=== PATIENT | male | born 1990 | race Two or more races ===

== ENCOUNTER 2022-05-13 18:26 | Emergency (ER) | payer BC | END 2022-05-13 22:57 | disposition home or self-care (01) | LOC: JD.ED 18:26 | DX: R06.02 Shortness of breath (principal); Z20.822 Contact with and (suspected) exposure to COVID-19 | CPT/HCPCS: 36415; 71045; 71045-26; 80053; 83735; 85025; 85379; 93971-26-RT; 93971-RT; 99283; 99285-25; U0002 ==